=== PATIENT | male | born 1955 | race Caucasian/White ===

== ENCOUNTER → 2019-09-19 11:05 | Outpatient (BNVA) | payer OTHER, SELFPAY | PROVIDERS: Family Provider Family Medicine; Visit Provider Dermatology | DX: R21 Rash and other nonspecific skin eruption (principal); H02.846 Edema of left eye, unspecified eyelid; I78.1 Nevus, non-neoplastic; Z85.828 Personal history of other malignant neoplasm of skin; F17.290 Nicotine dependence, other tobacco product, uncomplicated | CPT/HCPCS: 11102; 88305; 88312; 99203 ==

== ENCOUNTER → 2019-09-21 10:40 | Outpatient (BNVA) | payer OTHER, SELFPAY | PROVIDERS: Family Provider Family Medicine; Visit Provider Dermatology | DX: R21 Rash and other nonspecific skin eruption (principal) | CPT/HCPCS: 88305 ==

== ENCOUNTER → 2020-11-18 12:08 | Outpatient (BNVA) | payer OTHER, SELFPAY | PROVIDERS: Family Provider Family Medicine; PCP Family Medicine; Visit Provider Surgery | DX: Z01.812 Encounter for preprocedural laboratory examination (principal); Z20.822 Contact with and (suspected) exposure to COVID-19 | CPT/HCPCS: 87635 ==

== ENCOUNTER 2020-11-21 08:54 | Day surgery (SDC) | payer OTHER, SELFPAY ==
--- NOTE | 2020-11-21 09:05 | P.HP_ITS ---
Same Day Surgery H&P Indication for Procedure/HPI DATE OF PROCEDURE: November 21, 2020 CHIEF COMPLAINT/INDICATIONFOR SURGICAL PROCEDURE: hematochezia PREOP DIAGNOSIS: hematochezia PLANNED PROCEDRUE: Operation Date: 11/21/20 10:15 Proposed Procedures p Colonoscopy 91334 Z12.11(Not Applicable) - Ramón Rico MD Medications/Allergies* Home Medications Medication Instructions Recorded Confirmed Type alprazolam 0.25 mg tablet 0.25 mg PO DAILY 09/19/19 11/18/20 History aspirin 81 mg tablet,delayed 81 mg PO DAILY 09/19/19 11/18/20 History release clobetasol 0.05 % scalp solution 1 applic TOPICAL DAILY 09/19/19 11/18/20 History clobetasol 0.05 % topical cream 1 applic TOPICAL BID 09/19/19 11/18/20 History clopidogrel 75 mg tablet 75 mg PO DAILY 09/19/19 11/20/20 History lisinopril 20 mg tablet 20 mg PO DAILY 09/19/19 11/18/20 History nebivolol 5 mg tablet 7.5 mg PO DAILY tab 09/19/19 11/18/20 History vitamin B complex 1 cap PO DAILY 09/19/19 11/18/20 History white petrolatum 41 % topical 1 applic TOPICAL DAILY PRN 09/19/19 11/18/20 History ointment ascorbic acid (vitamin C) [Vitamin 25 mg PO DAILY 11/18/20 11/20/20 History C] cyanocobalamin (vitamin B-12) 1 mcg PO DAILY 11/18/20 11/18/20 History [Vitamin B-12] lactobacillus combination no.4 3,000 mmu cells PO DAILY 11/18/20 11/18/20 History [Probiotic] eu-cy-dkgs-FA-herbal cmplx#190 1 tab PO DAILY 11/18/20 11/18/20 History [Vitamin D3 Complete] sodium chloride [Afrin Saline 2 spray INTRANASAL DAILY 11/18/20 11/18/20 History Nasal Mist] lojosdk-bwpt-gkigy-oreg-capryl 1 cap PO DAILY 11/18/20 11/18/20 History vitamin B complex 1 cap PO DAILY 11/18/20 11/18/20 History zinc 1 tab PO DAILY 11/18/20 11/18/20 History Allergies/Adverse Reactions Allergy/AdvReac Type Severity Reaction Status Date / Time clavulanic acid Allergy upset Verified 08/26/20 11:04 [From Augmentin] stomach Pertinent History/Comorbid Conditions* Medical History (Updated 08/26/20 @ 11:15 by Ramón Rico MD) CAD (coronary artery disease) History of nonmelanoma skin cancer Hypertension Squamous cell carcinoma nose Surgical History (Updated 08/26/20 @ 11:15 by Ramón Rico MD) History of colonoscopy with polypectomy 2014 History of coronary artery stent placement Family History (Updated 09/19/19 @ 11:36 by Geovanna Morley LPN) Cancer Denies family history of Diabetes CAD (coronary artery disease) Hypertension Social History Smoking and tobacco status: current every day smoker cigars Alcohol intake: current Alcohol intake frequency: 0-2 Drinks per Day Alcohol type: hard liquor History of recent travel: Yes ([place] and [place]) Pertinent Exam Findings alert, oriented x 3 and regular rate & rhythm Recommendations Surgery/Procedure today Coding Level of Care Code Acute Diamond Sizer for Smith Giron
--- NOTE | 2020-11-21 09:30 | ANES.PREANE2 ---
Pre-Anesthetic Assessment Pre-Anesthetic Assessment: Height/Weight: Height 1.8 m Preop Diagnosis: diagnostic Proposed Procedure: Operation Date: 11/21/20 10:15 Proposed Procedures p Colonoscopy 05083 Z12.11(Not Applicable) - Ramón Rico MD Was Beta Mayur taken within 24 hours: Yes Was Clonidine taken within 24 hours: N/A Social: Social History: No alcohol and No tobacco Exam: Pre-Anes Outpt Exam: alert, oriented x 3, clear to auscultation bilaterally and regular rate & rhythm Airway: Submandibular: WNL Cervical ROM: WNL MP: 2 Dentition: Full CV/HEM: CV/HEM: CAD (stent) and HTN Neuropsych: Neuropsych: Anxiety Anesthetic Plan: ASA status: 3 Anesthesia: MAC Risk of > 500 ml blood loss (7ml/kg in children): No PFSH Anesthesia PFSH: Medical History (Updated 08/26/20 @ 11:15 by Ramón Rico MD) CAD (coronary artery disease) History of nonmelanoma skin cancer Hypertension Squamous cell carcinoma nose Surgical History (Updated 08/26/20 @ 11:15 by Ramón Rico MD) History of colonoscopy with polypectomy 2014 History of coronary artery stent placement Family History Other Cancer Denies family history of Diabetes CAD (coronary artery disease) Hypertension Social History Smoking and tobacco status: current every day smoker cigars Alcohol intake: current Alcohol intake frequency: 0-2 Drinks per Day Alcohol type: hard liquor History of recent travel: Yes ([place] and [place]) Data Anesthesia Cardiac Studies: No Data to Display
[2020-11-21 09:42] VITALS: BP 179/110; PULSE 85; RESP 18; TEMP 36.1; O2SAT 96
[2020-11-21] MEDS: sodium chloride 0.9% 1,000 ML 30 ML IV (10:02)
[2020-11-21 11:24] VITALS: BP 146/93; PULSE 90; RESP 18; TEMP 35.5; O2SAT 93
--- NOTE | 2020-11-21 14:24 | ANE.PACU2 ---
Inpatient post-anesthesia follow up: Airway intact: Yes Vital signs: Temperature 96 F Pulse Rate 90 Respiratory Rate 18 Blood Pressure 146/93 Pulse Oximetry 93 Oxygen Delivery Me thod Nasal Cannula Oxygen Flow Rate 4 Fraction of Inspir ed Oxygen Hydration adequate: Yes Nausea and vomiting: No Pain level: 1 Mental status: Baseline
== END 2020-11-21 12:07 | disposition home or self-care (01) ==
PROVIDERS: PCP Family Medicine; Visit Provider Surgery
PROC: 0DJD8ZZ Inspection of Lower Intestinal Tract, Via Natural or Artificial Opening Endoscopic (ICD-10-PCS; CPT 45378; principal; 2020-11-21 10:15)
DX: K92.1 Melena (principal); K64.3 Fourth degree hemorrhoids; D12.4 Benign neoplasm of descending colon; Z79.82 Long term (current) use of aspirin; I25.10 Atherosclerotic heart disease of native coronary artery without angina pectoris; Z85.828 Personal history of other malignant neoplasm of skin; I10 Essential (primary) hypertension; F17.290 Nicotine dependence, other tobacco product, uncomplicated; Z95.5 Presence of coronary angioplasty implant and graft; F41.9 Anxiety disorder, unspecified
CPT/HCPCS: 45380; 88305; 96360; 96361; J2704; J7030

== ENCOUNTER 2023-07-23 09:41 | Outpatient (CLI) | payer OTHER, SELFPAY ==
--- NOTE | 2023-07-23 09:44 | USCV_ITS ---
Sherif Sanchez Age: 68 Gender: M : 1955 Exam Date: 07/23/2023 09:49 Ordering Phys: Umer Hilliard DO Technologist: CT Exam Location: [facility] [place] Indication: screening aaa HISTORY: Diameter (cm) AP x Transverse x Length Velocity (cm/s) Waveform Prox Aorta: 2.40 x 2.40 x 76.10 Mid Aorta: 2.40 x 2.50 x 69.20 Distal Aorta: 3.06 x 2.70 x 73.80 Right Iliac Prox: 1.30 x 1.10 x 147.30 Left Iliac Prox: 1.07 x 1.30 x 126.20 Stent Prox Landing x x Aneurysmal Sac Max x x Lt Lat Sac Dim Rt Lat Sac Dim Stent Dist Landing x x Right Iliac Stent x x Left Iliac Stent x x Right Renal Art Left Renal Art FINDINGS: Comparison: none available. A fusiform abdominal aortic aneurysm is noted with a maximal diameter of 3.1 cm. Minimal dilatation and ectasia. Mild atherosclerotic plaque. There is evidence of atherosclerotic plaque no significan stenosis in the right common iliac artery. There is evidence of atherosclerotic plaque no significan stenosis in the left common iliac artery. CONCLUSIONS Minimal AAA, 3.[address] Meseret Cole DO (Electronically Signed) Final Date: 23 Jul 2023 10:56 S
== END 2023-07-23 09:42 | disposition home or self-care (01) ==
PROVIDERS: PCP Family Medicine; Visit Provider Family Medicine
DX: I71.40 Abdominal aortic aneurysm, without rupture, unspecified (principal); F17.210 Nicotine dependence, cigarettes, uncomplicated
CPT/HCPCS: 76706